=== PATIENT | female | born 1990 | race Caucasian/White ===

== ENCOUNTER 2016-11-10 20:26 | Inpatient (IN) | payer OTHER ==
[2016-11-10] MEDS ORDERED: OXYTOCIN 30 UNITS/LACT RINGERS 500 ML IV ONE (21:21)
[2016-11-10] MEDS ORDERED: RINGERS SOLUTION,LACTATED 1,000 ML IV SCH (21:21)
[2016-11-10] MEDS ORDERED: RINGERS SOLUTION,LACTATED 1,000 ML IV ONE (21:21)
[2016-11-10] MEDS ORDERED: LIDOCAINE HCL/PF 1% 30 ML VIAL INJ PRN (21:30)
[2016-11-10] MEDS ORDERED: METOCLOPRAMIDE HCL 5 MG/ML 2 ML VIAL IVP PRN (21:30)
[2016-11-10] MEDS ORDERED: CLINDAMYCIN 900 MG/D5% WATER 50 ML IV SCH (21:30)
[2016-11-10] MEDS ORDERED: CITRIC ACID/SODIUM CITRATE 30 ML SOLUTION UDCUP PO PRN (21:30)
[2016-11-10 21:52] LABS: BASOPHILS % (AUTO) 0.2 % (0.0-2.0); EOSINOPHILS % (AUTO) 0.5 % (1.0-6.0); HEMATOCRIT 36.2 % (36-46); HEMOGLOBIN 12.2 g/dL (12.0-16.0); LYMPHOCYTES # (AUTO) 1.5 K/uL (1.0-4.8); LYMPHOCYTES % (AUTO) 11.9 % (22.0-44.0); MEAN CORPUSCULAR HGB CONC 33.6 G/dL (31.0-37.0); MEAN CORPUSCULAR VOLUME 95 fL (80-100); MONOCYTES # (AUTO) 0.7 K/uL (0.1-1.0); MONOCYTES % (AUTO) 5.6 % (2.0-9.0); NEUTROPHILS # (AUTO) 10.4 K/uL (1.8-7.7); NEUTROPHILS % (AUTO) 81.8 % (40.0-70.0); RED BLOOD CELL COUNT(AUTO) 3.81 MIL/uL (4.00-5.20); WHITE BLOOD COUNT (AUTO) 12.7 K/uL (4.5-11.0)
[2016-11-10] MEDS ORDERED: AMPICILLIN SODIUM 2 GM/NS 100 ML IV ONE (22:00)
[2016-11-10] MEDS ORDERED: FentaNYL/BUPIV 0.125%/NS/PF 200 ML ED PRN (22:10)
[2016-11-10] MEDS ORDERED: BUPIVACAINE HCL/PF 0.25% 10 ML VIAL ONE (22:12)
[2016-11-10] MEDS ORDERED: FentaNYL/BUPIV 0.125%/NS/PF 200 ML ED ONE (22:12)
[2016-11-10] MEDS ORDERED: NALBUPHINE HCL 10 MG/ML VIAL IVP PRN (22:15)
[2016-11-10] MEDS ORDERED: ONDANSETRON HCL 4 MG/2 ML VIAL IVP PRN (22:15)
[2016-11-10] MEDS ORDERED: DiphenhydrAMINE HCL 50 MG/ML VIAL IVP PRN (22:15)
[2016-11-10 23:00] VITALS: BP 103/64
[2016-11-10] MEDS ORDERED: PREN1TAB80 PO (23:14)
[2016-11-10] MEDS ORDERED: OXYTOCIN 30 UNITS/LACT RINGERS 500 ML IV PRN (23:30)
[2016-11-11] MEDS ORDERED: AMPICILLIN SODIUM 1 GM/NS 50 ML IV SCH (02:00)
[2016-11-11] MEDS ORDERED: OXYTOCIN 30 UNITS/LACT RINGERS 500 ML IV ONE (04:26)
[2016-11-11] MEDS ORDERED: BENZOCAINE 20%/MENTHOL 56 GM SPRAY CANISTER TP PRN (04:30)
[2016-11-11] MEDS ORDERED: GLYCERIN/WITCH HAZEL LEAF 40 PADS JAR TP PRN (04:30)
[2016-11-11] MEDS ORDERED: OxyCODONE HCL/ACETAMINOPHEN 5-325 MG TABLET PO PRN ×2 (04:30)
[2016-11-11] MEDS ORDERED: LANOLIN 7 GM OINTMENT TP PRN (04:30)
[2016-11-11] MEDS ORDERED: LIDOCAINE HCL/PF 1% 30 ML VIAL INJ PRN (04:30)
[2016-11-11] MEDS: MAGNESIUM HYDROXIDE SUSPENSION 30 ML UDCUP PO PRN ×2 (09:31→21:29)
[2016-11-11] MEDS: IBUPROFEN 800 MG TABLET PO PRN (18:57)
[2016-11-12] MEDS: IBUPROFEN 800 MG TABLET PO PRN (04:44)
[2016-11-12 06:17] LABS: BASOPHILS % (AUTO) 0.3 % (0.0-2.0); EOSINOPHILS % (AUTO) 1.7 % (1.0-6.0); HEMATOCRIT 32.9 % (36-46); HEMOGLOBIN 10.9 g/dL (12.0-16.0); LYMPHOCYTES # (AUTO) 2.2 K/uL (1.0-4.8); LYMPHOCYTES % (AUTO) 18.8 % (22.0-44.0); MEAN CORPUSCULAR HEMOGLOBIN 31.9 pg (26.0-34.0); MEAN CORPUSCULAR VOLUME 97 fL (80-100); MONOCYTES # (AUTO) 0.6 K/uL (0.1-1.0); MONOCYTES % (AUTO) 4.7 % (2.0-9.0); NEUTROPHILS # (AUTO) 8.8 K/uL (1.8-7.7); NEUTROPHILS % (AUTO) 74.5 % (40.0-70.0); RED BLOOD CELL COUNT(AUTO) 3.41 MIL/uL (4.00-5.20); RED CELL DISTRIBUTION WIDTH 14.2 % (11.5-14.5); WHITE BLOOD COUNT (AUTO) 11.8 K/uL (4.5-11.0)
[2016-11-12] MEDS ORDERED: IBUP-2070 PO (10:53)
[2016-11-12] MEDS ORDERED: DSS100 PO (10:54)
== END 2016-11-12 10:45 | disposition home or self-care (01) | DRG 775 ==
LOC: OBSVTOIN 20:26 → 4S 20:26
PROVIDERS: ADMIT Obstetrics & Gynecology; ATTEND Obstetrics & Gynecology
PROC: 3E0S3CZ (ICD-10-PCS; 2016-11-10)
PROC: 00HU33Z Insertion of Infusion Device into Spinal Canal, Percutaneous Approach (ICD-10-PCS; 2016-11-10)
PROC: 10D07Z6 Extraction of Products of Conception, Vacuum, Via Natural or Artificial Opening (ICD-10-PCS; principal; 2016-11-11)
PROC: 0KQM0ZZ Repair Perineum Muscle, Open Approach (ICD-10-PCS; 2016-11-11)
PROC: 10907ZC Drainage of Amniotic Fluid, Therapeutic from Products of Conception, Via Natural or Artificial Opening (ICD-10-PCS; 2016-11-11)
DX: O76 Abnormality in fetal heart rate and rhythm complicating labor and delivery (principal); O66.5 Attempted application of vacuum extractor and forceps; O70.1 Second degree perineal laceration during delivery; Z37.0 Single live birth; Z3A.38 38 weeks gestation of pregnancy
CPT/HCPCS: 86592; 86850; 86900; 86901; J0290; J2590; J3490; J7120